=== PATIENT | female | born 1995 | race Hispanic/Latino ===

== ENCOUNTER 2020-10-18 15:03 | Emergency (ER) | payer OTHER, SELFPAY ==
[2020-10-18 18:41] LABS: Urine Bacteria <20 /HPF (<20); Urine RBC <5 /HPF (NONE SEEN); Urine Trichomonas PRESENT (NONE SEEN)
--- NOTE | 2020-10-18 18:55 | RAD REPORT ---
EXAM DESCRIPTION: RAD - Abdomen 1 View (KUB) - 10/18/2020 6:38 pm CLINICAL HISTORY: Abdomen pain. FINDINGS: The bowel gas pattern is unremarkable. A large amount stool is present throughout the colo n. An IUD overlies the upper left pelvis. It cannot be determined if it lies within the uterus on this e xam. Further evaluation with either ultrasound or CT recommended
[2020-10-18] MEDS ORDERED: WATER FOR INJ,STERILE 10 ML ONE (19:03)
[2020-10-18] MEDS ORDERED: IBUPROFEN 200 MG TAB PO ONE (19:03)
[2020-10-18] MEDS ORDERED: CEFTRIAXONE 1000 MG/VIAL ONE (19:03)
[2020-10-18] MEDS ORDERED: IBUPROFEN 400 MG TAB ONE (19:03)
[2020-10-18] MEDS ORDERED: CIPROFLOXACIN HCL 500 MG TAB ONE (19:03)
[2020-10-18] MEDS ORDERED: metroNIDAZOLE 500 MG TABLET ONE (19:09)
--- NOTE | 2020-10-18 19:32 | ER ---
Nurse's Notes [facility] Name: Alycia Aj Age: 24 yrs Sex: Female : 1995 Arrival Date: 10/18/2020 Time: 15:05 Bed 18 Private MD: Diagnosis: Pelvic and perineal pain;Urinary tract infection, site not specified;Trichomoniasis, unspecified Presentation: 10/18 16:07 Chief complaint: Patient states: low abdominal cramping x 4 days, has an IUD, LMP jl7 10-07-2020, reports urinary frequency since this morning, pt a [facility], last used meth 2 weeks ago. Coronavirus screen: Client denies travel out of the [place] in the last 14 days. At this time, the client does not indicate any symptoms associated with coronavirus-19. Ebola Screen: No symptoms or risks identified at this time. Initial Sepsis Screen: Does the patient meet any 2 criteria? No. Patient's initial sepsis screen is negative. Does the patient have a suspected source of infection? No. Patient's initial sepsis screen is negative. Risk Assessment: Do you want to hurt yourself or someone else? Patient reports no desire to harm self or others. Onset of symptoms was October 14, 2020. Care prior to arrival: None. Transition of care: patient was not received from another setting of care. 16:07 Method Of Arrival: Ambulatory jl7 16:07 Acuity: TIANNA 3 jl7 Triage Assessment: 16:11 General: Appears in no apparent distress. uncomfortable, Behavior is calm, cooperative, jl7 appropriate for age. Pain: Complains of pain in right lower quadrant and left lower quadrant Pain currently is 6 out of 10 on a pain scale. Quality of pain is described as crampy. 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 - Social history:: Smoking status: Patient reports the use of cigarette tobacco products, smokes one pack cigarettes per day. - Family history:: not pertinent. Screenin:19 Abuse screen: Denies threats or abuse. Denies injuries from another. Nutritional jl7 screening: No deficits noted. Tuberculosis screening: No symptoms or risk factors identified. Fall Risk None identified. Assessment: 18:00 General: Appears in no apparent distress. comfortable, Behavior is calm, cooperative, ca1 appropriate for age. Pain: Complains of pain in suprapubic area and left lower quadrant and right lower quadrant Pain does not radiate. Pain currently is 2 out of 10 on a pain scale. at worst was 8 out of 10 on a pain scale. Pain began 4 days Is intermittent. Neuro: Level of Consciousness is awake, alert, obeys commands, Oriented to person, place, time, situation. : Urine is cloudy. EENT: No signs and/or symptoms were reported regarding the EENT system. Derm: Skin is intact, is healthy with good turgor, Skin is pink, warm \T\ dry. Musculoskeletal: Circulation, motion, and sensation intact. Capillary refill < 3 seconds. 19:00 Reassessment: Patient appears in no apparent distress at this time. Patient and/or ca1 family updated on plan of care and expected duration. Pain level reassessed. Patient is alert, oriented x 3, equal unlabored respirations, skin warm/dry/pink. 19:42 Reassessment: Patient appears in no apparent distress at this time. Patient is alert, ca1 oriented x 3, equal unlabored respirations, skin warm/dry/pink. Vital Signs: 16:07 BP 126 / 81; Pulse 88; Resp 17; Temp 97.2; Pulse Ox 100% ; Weight 63.5 kg; Height 4 ft. jl7 8 in. (142.24 cm); Pain 6/10; 18:00 BP 110 / 74; Pulse 66; Resp 16 S; Pulse Ox 100% on R/A; ca1 19:00 BP 121 / 76; Pulse 86; Resp 16 S; Pulse Ox 100% on R/A; ca1 19:42 BP 113 / 71; Pulse 73; Resp 19; Pulse Ox 100% on R/A; ca1 16:07 Body Mass Index 31.39 (63.50 kg, 142.24 cm) jl7 ED Course: 15:05 Patient arrived in ED. ag5 16:11 Triage completed. jl7 16:11 Arm band placed on right wrist. jl7 17:57 Tenisha Rock RN is Primary Nurse. ca1 17:58 Apolinar Castro MD is Attending Physician. kathryn 18:00 Warm blanket given. ca1 18:19 Patient has correct armband on for positive identification. Placed in gown. Bed in low jl7 position. Call light in reach. Side rails up X 1. Pulse ox on. NIBP on. 18:19 Urine collected: clean catch specimen, cloudy. jl7 18:39 Abdomen 1 View (KUB) XRAY In Process Unspecified. EDMS 19:25 Pelvis Complete In Process Unspecified. EDMS 19:32 Alexandr Uribe MD is Referral Physician. kathryn 19:42 No provider procedures requiring assistance completed. Patient did not have IV access ca1 during this emergency room visit. Administered Medications: 18:50 Drug: Cipro 500 mg Route: PO; ca1 19:30 Follow up: Response: No adverse reaction ca1 18:52 Drug: Motrin 600 mg Route: PO; ca1 19:30 Follow up: Response: No adverse reaction ca1 18:56 Drug: Flagyl 2 grams Route: PO; ca1 19:30 Follow up: Response: No adverse reaction ca1 18:58 Drug: Rocephin (cefTRIAXone) 1 grams Route: IM; Site: right gluteus; ca1 19:30 Follow up: Response: No adverse reaction ca1 Outcome: 19:32 Discharge ordered by . kathryn 19:42 Discharged to home ambulatory. ca1 19:42 Condition: stable 19:42 Discharge instructions given to patient, Instructed on discharge instructions, follow up and referral plans. medication usage, Demonstrated understanding of instructions, follow-up care, medications, Prescriptions given X 3. 19:43 Patient left the ED. ca1 Signatures: Dispatcher [employer] EDApolinar Rosenbaum MD MD cha Leal, Jahala, RN RN jl7 Tenisha Rock RN RN ca1 Rebecca Dee ag5 Corrections: (The following items were deleted from the chart) 19:42 19:00 BP 113 / 71; Pulse 73bpm; Resp 79bpm; Pulse Ox 100% RA; ca1 ca1 19:42 19:00 BP 113 / 71; Pulse 73bpm; Resp 19bpm; Pulse Ox 100% RA; ca1 ca1
--- NOTE | 2020-10-18 19:32 | EDPHYS ---
Physician Documentation [facility] Name: Alycia Aj Age: 24 yrs Sex: Female : 1995 Arrival Date: 10/18/2020 Time: 15:05 Bed 18 Private MD: ED Physician Apolinar Castro HPI: 10/18 18:07 This 24 yrs old Female presents to ER via Ambulatory with complaints of Pelvic kathryn Pain. 18:07 The patient presents with pelvic pain. Onset: The symptoms/episode began/occurred 1 kathryn day(s) ago. Modifying factors: The symptoms are alleviated by nothing, the symptoms are aggravated by nothing. Associated signs and symptoms: The patient has no apparent associated signs or symptoms. Severity of symptoms: At their worst the symptoms were mild, in the emergency department the symptoms are unchanged. The patient is sexually active, reportedly has a single partner. The patient has not experienced similar symptoms in the past. 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 - Social history:: Smoking status: Patient reports the use of cigarette tobacco products, smokes one pack cigarettes per day. - Family history:: not pertinent. ROS: 18:07 Constitutional: Negative for fever, chills, and weight loss, Eyes: Negative for injury, kathryn pain, redness, and discharge, ENT: Negative for injury, pain, and discharge, Neck: Negative for injury, pain, and swelling, Cardiovascular: Negative for chest pain, palpitations, and edema, Respiratory: Negative for shortness of breath, cough, wheezing, and pleuritic chest pain, Back: Negative for injury and pain, : Negative for injury, bleeding, discharge, and swelling, MS/Extremity: Negative for injury and deformity, Skin: Negative for injury, rash, and discoloration, Neuro: Negative for headache, weakness, numbness, tingling, and seizure, Psych: Negative for depression, anxiety, suicide ideation, homicidal ideation, and hallucinations, Allergy/Immunology: Negative for hives, rash, and allergies, Endocrine: Negative for neck swelling, polydipsia, polyuria, polyphagia, and marked weight changes, Hematologic/Lymphatic: Negative for swollen nodes, abnormal bleeding, and unusual bruising. 18:07 Abdomen/GI: Positive for abdominal cramps, of the suprapubic area, right lower quadrant and left lower quadrant. Exam: 18:07 Constitutional: This is a well developed, well nourished patient who is awake, alert, kathryn and in no acute distress. Head/Face: Normocephalic, atraumatic. Eyes: Pupils equal round and reactive to light, extra-ocular motions intact. Lids and lashes normal. Conjunctiva and sclera are non-icteric and not injected. Cornea within normal limits. Periorbital areas with no swelling, redness, or edema. ENT: Nares patent. No nasal discharge, no septal abnormalities noted. Tympanic membranes are normal and external auditory canals are clear. Oropharynx with no redness, swelling, or masses, exudates, or evidence of obstruction, uvula midline. Mucous membranes moist. Neck: Trachea midline, no thyromegaly or masses palpated, and no cervical lymphadenopathy. Supple, full range of motion without nuchal rigidity, or vertebral point tenderness. No Meningismus. Chest/axilla: Normal chest wall appearance and motion. Nontender with no deformity. No lesions are appreciated. Cardiovascular: Regular rate and rhythm with a normal S1 and S2. No gallops, murmurs, or rubs. Normal PMI, no JVD. No pulse deficits. Respiratory: Lungs have equal breath sounds bilaterally, clear to auscultation and percussion. No rales, rhonchi or wheezes noted. No increased work of breathing, no retractions or nasal flaring. Back: No spinal tenderness. No costovertebral tenderness. Full range of motion. Skin: Warm, dry with normal turgor. Normal color with no rashes, no lesions, and no evidence of cellulitis. MS/ Extremity: Pulses equal, no cyanosis. Neurovascular intact. Full, normal range of motion. Neuro: Awake and alert, GCS 15, oriented to person, place, time, and situation. Cranial nerves II-XII grossly intact. Motor strength 5/5 in all extremities. Sensory grossly intact. Cerebellar exam normal. Normal gait. Psych: Awake, alert, with orientation to person, place and time. Behavior, mood, and affect are within normal limits. 18:07 Abdomen/GI: Inspection: abdomen appears normal, Bowel sounds: normal, Palpation: mild abdominal tenderness, in the right lower quadrant and left lower quadrant, Liver: no appreciated palpable abnormalities, Hernia: not appreciated. Vital Signs: 16:07 BP 126 / 81; Pulse 88; Resp 17; Temp 97.2; Pulse Ox 100% ; Weight 63.5 kg; Height 4 ft. jl7 8 in. (142.24 cm); Pain 6/10; 18:00 BP 110 / 74; Pulse 66; Resp 16 S; Pulse Ox 100% on R/A; ca1 19:00 BP 121 / 76; Pulse 86; Resp 16 S; Pulse Ox 100% on R/A; ca1 19:42 BP 113 / 71; Pulse 73; Resp 19; Pulse Ox 100% on R/A; ca1 16:07 Body Mass Index 31.39 (63.50 kg, 142.24 cm) jl7 MDM: 17:58 Patient medically screened. [facility] 18:09 Differential diagnosis: nonspecific abdominal pain, ovarian cyst, uterine fibroids, kathryn urinary tract infection. Data reviewed: vital signs, nurses notes, lab test result(s), radiologic studies. Data interpreted: compliance monitor: rate is 88 beats/min, rhythm is regular, Pulse oximetry: on room air is 100 %. Test interpretation: by ED physician or midlevel provider: plain radiologic studies. Counseling: I had a detailed discussion with the patient and/or guardian regarding: the historical points, exam findings, and any diagnostic results supporting the discharge/admit diagnosis, lab results, radiology results. 10/18 18:19 Order name: Urine Microscopic Only; Complete Time: 18:46 [facility] 10/18 18:23 Order name: Urine Dipstick--Ancillary (enter results) [facility] 10/18 18:06 Order name: Abdomen 1 View (KUB) XRAY [facility] 10/18 18:23 Order name: Urine --Ancillary (enter results) [facility] 10/18 18:42 Order name: Urine Culture [facility] 10/18 18:06 Order name: Urine Dipstick-Ancillary (obtain specimen); Complete Time: 18:19 [facility] 10/18 18:06 Order name: Urine Test (obtain specimen); Complete Time: 18:19 [facility] 10/18 19:24 Order name: Pelvis Complete EDMS Administered Medications: 18:50 Drug: Cipro 500 mg Route: PO; ca1 19:30 Follow up: Response: No adverse reaction ca1 18:52 Drug: Motrin 600 mg Route: PO; ca1 19:30 Follow up: Response: No adverse reaction ca1 18:56 Drug: Flagyl 2 grams Route: PO; ca1 19:30 Follow up: Response: No adverse reaction ca1 18:58 Drug: Rocephin (cefTRIAXone) 1 grams Route: IM; Site: right gluteus; ca1 19:30 Follow up: Response: No adverse reaction ca1 Disposition: 10/18/20 19:32 Discharged to Home. Impression: Pelvic and perineal pain, Urinary tract infection, site not specified, Trichomoniasis, unspecified. - Condition is Stable. - Discharge Instructions: Dysuria, Pelvic Pain, Female, Trichomoniasis, Urinary Tract Infection, Adult, Pelvic Pain, Female, [id number], Urinary Tract Infection, Adult, Dcbb-[id number], Pelvic Rest. - Prescriptions for Cipro 250 mg Oral Tablet - take 1 tablet by ORAL route every 12 hours; 14 tablet. Ibuprofen 600 mg Oral Tablet - take 1 tablet by ORAL route every 8 hours As needed take with food; 21 tablet. Doxycycline Hyclate 100 mg Oral Tablet - take 1 tablet by ORAL route every 12 hours; 14 tablet. - Medication Reconciliation Form, Thank You Letter, Antibiotic Education, Prescription Opioid Use form. - Follow up: Private Physician; When: 2 - 3 days; Reason: Recheck today's complaints, Continuance of care, Re-evaluation by your physician. Follow up: Alexandr Uribe; When: 2 - 3 days; Reason: Recheck today's complaints, Re-evaluation by your physician. - Problem is new. - Symptoms have improved. Signatures: Dispatcher [employer] EDPA Apolinar Castro MD MD cha Leal, Jahala RN RN jl7 Tenisha Rock RN RN ca1 Corrections: (The following items were deleted from the chart) 19:24 18:46 Transvaginal Study (Probe)+[email or web address] ordered. [facility] 19:43 19:32 10/18/2020 19:32 Discharged to Home. Impression: Pelvic and perineal pain; ca1 Urinary tract infection, site not specified; Trichomoniasis, unspecified. Condition is Stable. Discharge Instructions: Dysuria, Pelvic Pain, Female, Urinary Tract Infection, Adult, Pelvic Pain, Female, [id number], Urinary Tract Infection, Adult, [id number], Trichomoniasis, Pelvic Rest. Prescriptions for Cipro 250 mg Oral Tablet - take 1 tablet by ORAL route every 12 hours; 14 tablet, Ibuprofen 600 mg Oral Tablet - take 1 tablet by ORAL route every 8 hours As needed take with food; 21 tablet, Doxycycline Hyclate 100 mg Oral Tablet - take 1 tablet by ORAL route every 12 hours; 14 tablet. and Forms are Medication Reconciliation Form, Thank You Letter, Antibiotic Education, Prescription Opioid Use. Follow up: Private Physician; When: 2 - 3 days; Reason: Recheck today's complaints, Continuance of care, Re-evaluation by your physician. Follow up: Alexandr Uribe; When: 2 - 3 days; Reason: Recheck today's complaints, Re-evaluation by your physician. Problem is new. Symptoms have improved. kathryn
--- NOTE | 2020-10-18 19:38 | RAD REPORT ---
EXAM DESCRIPTION: US - Pelvis Complete - 10/18/2020 7:25 pm CLINICAL HISTORY: Pelvic pain COMPARISON: Abdominal x-ray 10/18/2020 FINDINGS: The uterus measures 8 x 3 x 4 centimeters. An IUD is present within the endometrium within the uterine fundus. Endometrial stripe measures 6 millimeters. 15 millimeter fibroid. The right and left ovary are normal in size and echotexture. The right and left adnexa unremarkable. No significant free fluid IMPRESSION: IUD within the endometrium of the uterus 15 millimeter uterine fibroids
[2020-10-18 20:46] LABS: Urine Blood NEGATIVE (NEG); Urine Glucose NEGATIVE (NEG); Urine Protein NEGATIVE (NEG); Urine Specific Gravity 1.025 (1.005-1.030)
== END 2020-10-18 19:43 | disposition home or self-care (01) ==
LOC: ER 15:03
DX: N39.0 Urinary tract infection, site not specified (principal); A59.9 Trichomoniasis, unspecified; F17.210 Nicotine dependence, cigarettes, uncomplicated
CPT/HCPCS: 74018; 76856; 81003; 81015; 81025; 87086; 87088; 96372; 99284